=== PATIENT | male | born 1990 | race Caucasian/White ===

== ENCOUNTER → 2022-06-15 | Day surgery (SDC) | payer OTHER ==
[~2022-06-15] VITALS: Ht 182.9 cm; Wt 101.2 kg
[2022-06-15 09:20] LABS: HCT 50.5 % (42.0-52.0); HGB 16.6 g/dl (13.2-18.0); MCH 26.4 pg (25.0-31.0); MCHC 32.9 g/dL (32.0-36.0); MCV 80.4 fL (78.0-100.0); MPV 10.1 fL (6.0-9.5); RBC 6.28 M/uL (4.70-6.00); RDW 12.8 % (11.5-14.0); WBC 6.2 K/uL (4.0-10.5)
[2022-06-15 09:57] LABS: ALBUMIN 4.1 g/dL (3.4-5.0); BILIRUBIN - TOTAL 1.1 mg/dL (0.2-1.0); BUN/CREAT RATIO (CALC) 14.7 RATIO; CREATININE 1.02 mg/dL (0.67-1.17); POTASSIUM 3.8 mmol/L (3.5-5.1); TOTAL PROTEIN 8.1 g/dL (6.4-8.2)
== END | disposition home or self-care (01) ==
LOC: FAS 08:20
PROVIDERS: Surgery
DX: K62.5 Hemorrhage of anus and rectum (principal); K21.00 Gastro-esophageal reflux disease with esophagitis, without bleeding; K29.70 Gastritis, unspecified, without bleeding; I10 Essential (primary) hypertension; Z88.0 Allergy status to penicillin; Z88.2 Allergy status to sulfonamides
CPT/HCPCS: 36415; 76705; 80053; J2250; J2704; J7120